=== PATIENT | female | born 1965 | race Caucasian/White ===

== ENCOUNTER 2020-03-05 13:28 | Outpatient (CLI) | payer OTHER, SELFPAY ==
--- NOTE | ~2020-03-05 | XR_ITS ---
EXAMINATION: XR chest 2V DATE: 03/05/2020 13:54 INDICATION: Cough. TECHNIQUE: Frontal and lateral views of the chest were obtained. COMPARISON: Chest 2 views 12/23/2016, CT abdomen and pelvis 11/16/2018 FINDINGS: The chest demonstrates clear lungs without pneumonia, pleural effusion, or pneumothorax. Th e heart size is normal. There is a prominent right paracardial fat pad. IMPRESSION: 1. No acute cardiopulmonary disease. Reviewed, dictated and finalized at location E.
== END 2020-03-05 13:29 | disposition home or self-care (01) ==
LOC: ANHIMG 13:32
PROVIDERS: PCP Family Medicine; Visit Provider Family Medicine
DX: R05 Cough (principal)
CPT/HCPCS: 71046

== ENCOUNTER 2020-05-20 05:11 | Emergency (ER) | payer OTHER, SELFPAY ==
[2020-05-20 05:13] VITALS: BP 147/77; PULSE 80; RESP 17; TEMP 36.2; O2SAT 98
--- NOTE | 2020-05-20 05:43 | ED.WOUNDLAC ---
HPI - Wound/Laceration General Chief Complaint: Wound/Laceration Stated Complaint: finger lac Time Seen by Provider: 05/20/20 05:13 History of Present Illness HPI narrative: Patient is a 54-year-old female who presents ER with a laceration to her left second digit fingertip. She was cutting onions when she sliced her finger. She is gotten the bleeding to stop. Her tetanus shot is not up-to-date. No bone exposed. Has some referred pain down the finger. Related Data Allergies Allergy/AdvReac Type Severity Reaction Status Date / Time adhesive Allergy Unknown RASH Verified 05/20/20 05:25 penicillin G Allergy Unknown Anaphylactic Verified 05/20/20 05:27 Shock Penicillins Allergy Unknown Anaphylactic Verified 05/20/20 05:27 Shock tramadol Allergy Unknown Hallucinati Verified 05/20/20 05:27 ng Review of Systems Integumentary/Breasts: Comments: Finger laceration Neurologic: Denies focal weakness and Denies numbness PMFSH Past Medical History Medical History (Updated 05/20/20 @ 05:52 by Mikael Medrano MD) Depression IFG (impaired fasting glucose) Mixed hyperlipidemia LAURA (obstructive sleep apnea) Surgical History Surgical History (Updated 05/20/20 @ 05:50 by Mikael Medrano MD) No pertinent past surgical history Family History Family History (Updated 05/24/14 @ 07:13 by DOCTOR UNKNOWN) Mother Family history of hypothyroidism Family history of thyroid disease Family history of anemia Father Family history of coronary artery disease Family history of malignant neoplasm Other Cerebrovascular accident Diabetes mellitus Family history of arthritis Hypertension Social History Social History Smoking status: Never smoker Alcohol intake: current Gender identity (if verbalized by the patient): Female Exam Narrative: Exam Narrative: GENERAL: Well-appearing, well-nourished, and in no acute distress. HEAD: Normocephalic, atraumatic. EXTREMITIES: Normal range of motion. No edema. SKIN: Warm, dry, small avulsion of skin over the left second digit fingertip extending into the nail. Not amenable to repair. NEURO: Alert and oriented x3. PSYCH: Normal mood and affect. Course Course Emergency Course: Nurse applied a bandage and AlumaFoam splint. Tetanus updated. Discharge home. Vital Signs Vital signs: Vital Signs Temperature 97.2 F L 05/20/20 05:13 Pulse Rate 80 05/20/20 05:13 Respiratory Rate 17 05/20/20 05:13 Blood Pressure 147/77 H 05/20/20 05:13 Pulse Oximetry 98 05/20/20 05:13 Temperature 97.2 F L 05/20/20 05:13 Pulse Rate 80 05/20/20 05:13 Respiratory Rate 17 05/20/20 05:13 Blood Pressure 147/77 H 05/20/20 05:13 Pulse Oximetry 98 05/20/20 05:13 Discharge Plan Discharge Clinical Impression: Avulsion of skin Patient Disposition: Home, Self-Care Condition: Stable Instructions: Skin Avulsion (ED) Additional Instructions: Return the ER if you have chest pain or shortness of breath, cannot keep down food or water, you have new injury, give additional concerns. Prescriptions: No Action Flovent HFA 44 mcg/actuation HFA aerosol inhaler 2 inhalation INHALATION BID Qty: 10.6 RF: 1 albuterol sulfate [ProAir HFA] 90 mcg/actuation HFA aerosol inhaler 1 inhalation INHALATION Q4H PRN (Reason: shortness of breath or wheezing) Qty: 18 RF: 0 sertraline 100 mg tablet 200 mg PO DAILY Qty: 180 RF: 2 Follow-up/Referrals: Vicente Moore MD [Primary Care Provider] - Stand Alone Forms: Work/School Release IP
[2020-05-20] MEDS: TETANUS,DIPHTHERIA,AC PERTUSSIS ADULT (0.5 ML) BOOSTRIX IM (05:49)
== END 2020-05-20 06:05 | disposition home or self-care (01) ==
PROVIDERS: Emergency Provider Emergency Medicine; PCP Family Medicine
DX: S61.211A Laceration without foreign body of left index finger without damage to nail, initial encounter (principal); E78.2 Mixed hyperlipidemia; G47.33 Obstructive sleep apnea (adult) (pediatric); Z23 Encounter for immunization; Y93.G1 Activity, food preparation and clean up; W26.9XXA Contact with unspecified sharp object(s), initial encounter
CPT/HCPCS: 90471; 90715; 99282

== ENCOUNTER 2023-03-11 11:34 | Outpatient (CLI) | payer OTHER, SELFPAY ==
[2023-03-11 12:09] LABS: Hematocrit 42.7 % (37.0-47.0); Hemoglobin 13.4 g/dL (12.0-15.0); Mean Corpuscular HGB Conc 31.4 g/dl (32-36); Mean Corpuscular Hemoglobin 27.2 pg (26-34); Mean Corpuscular Volume 86.6 fl (80-100); Mean Platelet Volume 9.8 fl (7.4-10.4); Platelet Count Result 311 k/mm3 (150-375); Red Blood Count 4.93 M/mm3 (4.2-5.4); Red Cell Distribution Width 13.6 % (11.5-14.5); White Blood Count 5.7 K/mm3 (4.5-10.0)
[2023-03-11 12:20] LABS: Appearance Urine Clear (Clear); Bacteria Urine None Seen /hpf; Bilirubin Urine Negative (Negative); Blood Urine Trace (Negative); Color Urine Yellow (Yellow); Glucose Urine UA Negative (Negative); Ketones Urine Negative (Negative); Leukocyte Esterase Ur Negative LEU/UL (NEGATIVE); Nitrate Urine Negative (Negative); Non Pathogenic Casts 0-2; Protein Urine Negative (Negative); RBC Urine 0-2 /hpf (0-2); Specific Grav Ur 1.027 (1.001-1.035); Squamous Epithelial Cell Urine Occasional /hpf (Few); WBC Urine 0-5 /hpf (0-3); pH Urine 5.5 (5.0-9.0)
[2023-03-11 12:27] LABS: Alanine Aminotransferase 23 U/L (6-35); Albumin Level 4.5 g/dL (3.5-5.1); Alkaline Phosphatase 60 U/L (38-126); Anion Gap 9 mmol/L (8-16); Aspartate Amino Transferase 23 U/L (14-36); Bilirubin,Total 0.8 mg/dL (0.2-1.3); Blood Urea Nitrogen 18 mg/dL (7-17); Calcium 8.9 mg/dL (8.4-10.2); Carbon Dioxide 28 mmol/L (22-30); Chloride 102 mmol/L (98-107); Cholesterol 234 mg/dL (0-200); Estimated Glomerular Filt Rate > 60; Glucose 113 mg/dL (65-110); HDL Direct 50 mg/dL; Potassium 4.1 mmol/L (3.4-5.0); Sodium 139 mmol/L (137-145); Triglycerides 156 mg/dL (<150)
[2023-03-11 12:37] LABS: Add Urine Microscopic? YES; LDL Cholesterol Direct 140 mg/dL
[2023-03-12 04:14] LABS: Hemoglobin A1C 5.9 % (<5.7)
== END 2023-03-11 11:35 | disposition home or self-care (01) ==
LOC: ANHLAB 11:35
PROVIDERS: PCP Family Medicine; Visit Provider Physician Assistant
DX: Z00.00 Encounter for general adult medical examination without abnormal findings (principal); R73.01 Impaired fasting glucose; E78.2 Mixed hyperlipidemia; F32.9 Major depressive disorder, single episode, unspecified
CPT/HCPCS: 36415; 80053; 80061; 81001; 83036; 84443; 85027